=== PATIENT | male | born 1995 | race Caucasian/White ===

== ENCOUNTER 2016-11-21 18:28 | Emergency (ER) | payer MEDICAID ==
[~2016-11-21] VITALS: Ht 188 cm; Wt 136.1 kg
[~2016-11-21 18:28] MED LIST: AMOXICILLIN 50500 MG PO; AMOXICOT500 MG PO; AMOXIL500 MG PO; AUGMENTIN 875-1 EACH PO; AZITHROMYCIN250 MG PO; BENADRYL 25MG C25 MG PO; CEPHALEXIN MON500 MG PO; CLARITIN 10MG T10 MG PO; CLOTRIMAZOLE 1%15 GM TP; COREG 3.125M3.125 MG PO; CORTISPORIN TC10 ML OT; COUGH MED; IBUPROFEN800 MG PO; LISINOPRIL 5MG T5 MG PO; MOTRIN IB200 MG OR; MOTRIN400 MG PO; NOMEDS *; NOMEDS XX; PHENERGAN 25MG.25 M1 PO; PREDNISONE 10MG10 MG PO; SEPTRA DS 800 M1 TAB PO; ZOFRAN ODT4 MG PO; ZOFRAN4 MG PO
--- NOTE | 2016-11-21 18:50 | Emergency Room Report ---
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 N Clinical Suspician of Infection? N Mental Status: 1 - Regular (Normal Baseline) Sepsis Risk:Low Sepsis Risk Have you (or family members/close friends) recently traveled outside the [place]? N If Yes, where/when: Have you had exposure to infectious disease within the past month? N TB? Other? Specify: Source patient, RN notes reviewed, family Exam Limitations no limitations Comment This is a 21-year-old male who presents to the emergency department for a 2 day history of sore throat. He is able tolerate fluids well, but has more difficulty tolerating solids because of pain. No excessive drooling or neck pain. He denies any fevers. He has had some nasal congestion and a dry cough. He denies any recent dental infections. No objective fevers. He has tried saltwater gargles, but no medications. ALLERGIES Coded Allergies: STRAWBERRIES (FOOD) (I-HIVES 01/12/16) Home Medications Reported Medications LISINOPRIL (Lisinopril) 2.5 MG PO DAILY Carvedilol (Coreg 3.125MG) 3.125 MG PO BID History Medical History General CAD? No Angina: No VA: No Hypertension? Yes Hyperlipidemia? No CHF? No DVT? No PE? No COPD? No Asthma? No Anemia? No GERD? No Gastric ulcers? No GI Bleed? No Hernia? No Thyroid Problems? No Hypothyroidism? No CVA? No Seizures? No Diabetes? No Renal Insuffiency? No End Stage Renal Disease? No UTI? No Stones? No BPH? No GB Disease: No Nephritic Syndrome? No Asplenia? No Hepatitis? No Sickle Cell Disease? No Arthritis? No Migraines? No Cataracts? No Glaucoma? No MRSA? No HIV? No TB? No Anxiety? No Depression? No Cancer? No More? Yes Additional hx: ENDOCARDITIS Immunization Hx DT/Tetanus 1-4 Years Ago Pneumonia Never Had Surgical Hx Previous Surgery?Y RIGHT ARM SURGERY RADIAL HEART CATH Family History Family Hx Diabetes Yes CAD No Hypertension Yes Hyperlipidemia No Cancer No TB No Social History Smoking Hx Smoker: Current Every Day Smoker Tobacco: Yes Type Snuff Alcohol Alcohol: No Review of Systems All Other Systems Reviewed and Negative Physical Exam Vital Signs Vital Signs Date Time Temp Pulse Resp B/P Pulse O2 O2 Flow FiO2 Ox Delivery Rate 11/21 1832 97.8 66 16 142/89 96 General Appearance normal appearance, WD/WN Ear, Nose, Throat hearing grossly normal, normal ENT inspection Neck normal inspection, non-tender, supple, full range of motion Respiratory Status Yes: chest symmetrical, non tender chest. No: respiratory distress. Lung Sounds bilateral: normal breath sounds, lungs clear. Cardiovascular normal exam, regular rate/rhythm, no peripheral edema, no gallop, no JVD, no murmur, no rub, normal peripheral pulses Gastrointestinal normal bowel sounds, normal exam, non tender Neurologic alert, no motor/sensory deficits, oriented x 3 Skin intact, normal color, warm/dry Medical Decision Making LABS/Meds/Orders Pt receiving controlled substance in ED? No Results/Orders Orders Procedure Date/time Status CULTURE, THROAT 11/21 1839 Active STREP SCREEN THROAT 11/21 1837 Complete Departure Departure Disposition DC Home or Self Care(routine) Clinical Impression Primary Impression: Pharyngitis Qualifiers: Pharyngitis/tonsillitis etiology: unspecified etiology Qualified Code: J02.9 - Acute pharyngitis, unspecified Condition STABLE Referrals Stephy Fitzpatrick (Family) Additional Instructions Use ibuprofen 400 mg every 6 hours as needed for fever, body aches, pain. You can alternate this with Tylenol 650 mg every 6 hours as well if needed. Use over -the-counter decongestants such as Mucinex D or Sudafed during the day and NyQuil or Benadryl at night to help with congestion. If symptoms are not improving over the next 2-3 days, follow-up with your primary care provider for reevaluation. Return to the emergency department for any acute respiratory distress. ED Critical Care Critical Care No Comments No signs of retropharyngeal abscess, peritonsillar abscess. No splenomegaly or lymphadenopathy to suggest mono. I'm not able to actually visualize any exudates or pharyngeal erythema. Suspect this is a mild pharyngitis. Strep screen negative. Recommended symptomatic treatment as above and follow up with PCP if not improving over the next several days. Discharged home. at [id number]
[2016-11-21 19:05] VITALS: BP 142/89
== END 2016-11-21 19:08 | disposition home or self-care (01) ==
LOC: ER 18:28
DX: J02.9 Acute pharyngitis, unspecified (principal)

== ENCOUNTER → 2017-03-19 | Outpatient (CLI) | payer MEDICAID ==
[2017-03-19 07:25] LABS: LYMPH # 2.6 K/mm3 (0.7-4.5); LYMPH % 37.7 % (10-50)
[2017-03-19 07:34] LABS: HEMOGLOBIN 14.5 g/dL (14.1-18.0)
[2017-03-19 09:13] LABS: BILIRUBIN, INDIRECT 0.21 mg/dL (0-0.9); BUN 16 mg/dL (7-18)
[2017-03-19 09:14] LABS: GFR (ESTIMATED) 95 ML/MIN (>60)
== END ==
LOC: LAB 07:04
PROVIDERS: Internal Medicine
DX: R07.9 Chest pain, unspecified (principal); Z86.79 Personal history of other diseases of the circulatory system; I42.9 Cardiomyopathy, unspecified